=== PATIENT | female | born 1990 | race African-American/Black ===

== ENCOUNTER 2019-07-14 12:11 | Emergency (ER) | payer OTHER ==
[~2019-07-14] VITALS: Ht 167.6 cm; Wt 104.3 kg
[~2019-07-14 12:11] MED LIST: MUCINEX600 MG
--- OUTSIDE RECORDS SUMMARY | 2019-07-14 12:13 | XMS REPORT ---
Author Author [facility] Address Unknown Phone Unavailable Care Team Providers Care [employer] Cook Name Role Phone Unavailable Unavailable Problems This patient has no known problems. Allergies, Adverse Reactions, Alerts This patient has no known allergies or adverse reactions. Medications This patient has no known medications.
--- OUTSIDE RECORDS SUMMARY | 2019-07-14 12:13 | XMS REPORT | Clinical Summary ---
Author Author [facility] Address Unknown Phone Unavailable Care Team Providers Care Technical Mgr Name Role Phone PCP Unavailable Allergies Not on File Medications Not on file Active Problems Not on file Social History Date Tobacco Use Types Packs/Day Years Used Never Assessed Sex Assigned at Date Recorded Not on file Industry Job Start Date Occupation Not on file Not on file Not on file Travel End Travel History Travel Start No recent travel history available. Last Filed Vital Signs Not on file Plan of Treatment Health Maintenance Due Date Last Done Comments CERVICAL CANCER SCREENING 2011 INFLUENZA VACCINE 06/06/2019 Results Not on fileafter 07/13/2018 Advance Directives For more information, please contact: [phone] Patient Restaurant Cook Explanation Type Date Recorded Advance Directives, Living Will and Medical Power of Plant Engineering Supervisor Advance Directives, 11/02/2016 9:31 AM Living Will and Medical Power of Plant Engineering Supervisor Advance Directives, 11/09/2016 10:33 AM Living Will and Medical Power of Plant Engineering Supervisor
[2019-07-14] MEDS ORDERED: HYDROCODONE/APAP 10MG-325MG TAB PO NR (12:30)
[2019-07-14] MEDS ORDERED: DIAZEPAM 5 MG TAB PO PRN (12:30)
[2019-07-14] MEDS ORDERED: KETOROLAC TROMETHAMINE 60 MG/2 ML VIAL IM NR (12:30)
[2019-07-14] MEDS ORDERED: DEXAMETHASONE SOD PHOS 10 MG/1 ML VIAL IM NR (12:30)
--- NOTE | 2019-07-14 13:02 | NUR ---
WAITING ON TEST PRIOR TO MEDICATION ADMIN. PATIENTS MOTHER IS ON HER WAY TO GIVE HER A RIDE HOME
--- NOTE | 2019-07-14 13:27 | Diagnostic Imaging Report ---
EXAMINATION: CHEST 2 VIEWS INDICATION: SOB, back pain. COMPARISON: None FINDINGS: TUBES and LINES: None. LUNGS: Low lung volumes. Mild patchy bibasilar opacities likely represent atelectasis. No evidence of lobar pneumonia or pulmonary edema. PLEURA: No pleural effusion or pneumothorax. HEART AND MEDIASTINUM: The cardiomediastinal silhouette is unremarkable. BONES AND SOFT TISSUES: No acute osseous abnormality. UPPER ABDOMEN: No free air under the diaphragm. IMPRESSION: Low lung lungs with mild patchy bibasilar opacities, likely atelectasis. Signed by: Dr. Sara Sol MD on 07/14/2019 1:24 PM
[2019-07-14] MEDS ORDERED: SODIUM CHLORIDE 0.9% 1000ML 1,000 ML IV STA (13:32)
[2019-07-14 13:58] LABS: BASOPHILS # (AUTO) 0.1 (0.0-0.1); BASOPHILS % 0.5 % (0.0-1.0); EOSINOPHILS # (AUTO) 0.1 (0.0-0.4); EOSINOPHILS % 1.2 % (0.0-6.0); HEMOGLOBIN 10.6 g/dL (12.0-16.0); LYMPHOCYTES # (AUTO) 2.1 (1.0-3.2); LYMPHOCYTES % 19.8 % (18.0-39.1); MEAN CORPUSCULAR HEMOGLOBIN 21.9 pg (28-32); MEAN CORPUSCULAR HGB CONC 31.2 g/dL (31-35); MEAN CORPUSCULAR VOLUME 70.2 fL (81-99); MONOCYTES # (AUTO) 0.9 (0.2-0.8); MONOCYTES % 8.4 % (4.4-11.3); NEUTROPHILS # (AUTO) 7.3 (2.1-6.9); NEUTROPHILS % 69.8 % (38.7-80.0); PLATELET COUNT 223 x10e3/uL (140-360); RED BLOOD COUNT 4.84 x10e6/uL (3.6-5.1); RED CELL DISTRIBUTION WIDTH 14.7 % (11.7-14.4)
[2019-07-14 14:12] LABS: INR 0.98; PROTHROMBIN TIME 13.5 seconds (11.9-14.5)
[2019-07-14 14:17] LABS: ALANINE AMINOTRANSFERASE 8 IU/L (0-55); ALBUMIN 3.5 g/dL (3.5-5.0); ALBUMIN/GLOBULIN RATIO 0.9 (0.8-2.0); ALKALINE PHOSPHATASE 81 IU/L (40-150); ANION GAP 12.8 mmol/L (8-16); BLOOD UREA NITROGEN 10 mg/dL (7-26); BUN/CREATININE RATIO 12 (6-25); CALCIUM 9.4 mg/dL (8.4-10.2); CARBON DIOXIDE 25 mmol/L (22-29); CHLORIDE 103 mmol/L (98-107); CREATINE KINASE 117 IU/L (29-168); CREATININE, SERUM 0.81 mg/dL (0.57-1.11); EST GLOMERULAR FILTRATION RATE > 60 ML/MIN (60-); GLUCOSE 96 mg/dL (74-118); POTASSIUM 3.8 mmol/L (3.5-5.1); SODIUM 137 mmol/L (136-145)
--- NOTE | 2019-07-14 14:40 | NUR ---
ASSUMED CARE BACK FROM LEEANNA Vieira
[2019-07-14 14:44] VITALS: BP 129/65
== END 2019-07-14 15:00 | disposition home or self-care (01) ==
LOC: ER 12:11
DX: M54.6 Pain in thoracic spine (principal); S23.3XXA Sprain of ligaments of thoracic spine, initial encounter; X50.0XXA Overexertion from strenuous movement or load, initial encounter; Y93.F2 Activity, caregiving, lifting; Y99.0 Civilian activity done for income or pay; J45.909 Unspecified asthma, uncomplicated; G89.29 Other chronic pain
CPT/HCPCS: 36415; 71046; 80053; 81025; 82550; 82553; 84484; 85025; 85379; 85610; 85730; 93005; 99284; J1100; J1885